=== PATIENT | female | born 1970 | race Hispanic/Latino ===

== ENCOUNTER → 2022-08-13 | Day surgery (SDC) | payer OTHER ==
[~2022-08-13] MED LIST: OMEPRAZOLE40 MG PO
[2022-08-13 11:26] VITALS: BP 110/70
== END | disposition home or self-care (01) ==
LOC: OR 07:40
PROVIDERS: ATTEND Internal Medicine Gastroenterology
DX: Z12.11 Encounter for screening for malignant neoplasm of colon (principal); D12.4 Benign neoplasm of descending colon; K62.1 Rectal polyp; K57.30 Diverticulosis of large intestine without perforation or abscess without bleeding; K64.8 Other hemorrhoids; K21.9 Gastro-esophageal reflux disease without esophagitis; E78.5 Hyperlipidemia, unspecified; Z01.810 Encounter for preprocedural cardiovascular examination; Z68.28 Body mass index [BMI] 28.0-28.9, adult
CPT/HCPCS: 45378; 45380; 93005